=== PATIENT | female | born 1985 | race Caucasian/White ===

== ENCOUNTER → 2016-05-03 | Outpatient (CLI) | payer OTHER ==
[~2016-05-03] MED LIST: BUSP7.5T4 PO; HYDR-3730 PO
--- OUTSIDE RECORDS SUMMARY | 2016-05-03 08:29 | XMS REPORT | Continuity of Care Document ---
Author Author [facility] Organization [facility] Address Unknown Phone Unavailable Care Team Providers Care Dishtank Operator Name Role Phone SOM CARRILLO DO PCP Insurance Providers Payer Name Policy Number Subscriber Name Relationship [facility] [id number] [place] 18 Self / Same As Patient Advance Directives Directive Response Recorded Date/Time Advance Directives No 07/14/14 8:43am Health Care Power of Engineer And Geologist No 07/14/14 8:43am Organ Donor No 07/14/14 8:43am Resuscitation Status Full Code 07/14/14 8:43am Problems No known problems or medical conditions. Medications Medication Dose Route Sig Days/Qty Instructions Order Date Discontinued Date Status Buspirone Hcl 7.5 Mg PO TWICE A DAY 07/11/14 Active Hydrocodone/Acetaminophen 1-2 Each PO EVERY 6 HOURS 35 Qty 07/14/14 Active Social History Social History Problem Response Recorded Date/Time Alcohol Use Denies Use 07/14/2014 8:43am Recreational Drug Use No 07/14/2014 8:43am Recent Foreign Travel No 07/14/2014 8:43am Sexually Transmitted Disease No 07/14/2014 8:43am HIV/AIDS No 07/14/2014 8:43am Smoking Status Never a Smoker 07/14/2014 8:45am Query Response Start Date Stop Date Smoking Status Never a Smoker Hospital Discharge Instructions No hospital discharge instructions. Plan of Care No plan of care. Functional Status No functional status results. Allergies, Adverse Reactions, Alerts Allergen Type Severity Reaction Status Last Updated antihistamines Allergy Unknown throat swelling Active 07/11/14 Immunizations No immunization records. Vital Signs Acute Vital Signs Vital Response Date/Time Temperature (Fahrenheit) 98.9 degrees F (97.6 - 99.5) Temperature (Calculated Celsius) 37.31765 degrees C (36.4 - 37.5) Temperature Source Temporal Pulse Rate (adult) 68 bpm (60 - 90) Respiratory Rate 16 bpm (12 - 24) O2 Sat by Pulse Oximetry 98 % (88 - 100) Blood Pressure 96/51 mm Hg Pain Pain Intensity 5 Height (Feet) 5 feet Height (Inches) 1.00 inches Height (Calculated Centimeters) 154.704514 cm Weight (Pounds) 122 pounds Weight (Calculated Grams) 75276.270 gm Weight (Calculated Kilograms) 55.742906 kilograms Calculated BMI 20.30 Results Laboratory Results Test Name Result Units Flags Reference Collection Date/Time Result Date/ Time Comments White Blood Count 5.3 10^3/uL 4.3-11.0 07/14/2014 8:07/14/2014 8: 37am Red Blood Count 4.28 10^6/uL L 4.35-5.85 07/14/2014 8:07/14/2014 8: 37am Hemoglobin 13.7 G/DL 11.5-16.0 07/14/2014 8:07/14/2014 8:37am Hematocrit 40 % 35-52 07/14/2014 8:07/14/2014 8:37am Mean Corpuscular Volume 94 FL 80-99 07/14/2014 8:07/14/2014 8: 37am Mean Corpuscular Hemoglobin 32 PG 25-34 07/14/2014 8:07/14/2014 8: 37am Mean Corpuscular Hemoglobin Concent 34 G/DL 32-36 07/14/2014 8:09/2014 8:37am Red Cell Distribution Width 11.7 % 10.0-14.5 07/14/2014 8:2014 8:37am Platelet Count 295 10^3/uL 130-400 07/14/2014 8:07/14/2014 8:37am Mean Platelet Volume 9.6 FL 7.4-10.4 07/14/2014 8:25am 07/14/2014 8: 37am Procedures Procedure Status Date Provider(s) Repair of umbilical hernia in adult completed 07/14/14 ARY HERNANDEZ MD Encounters Encounter Location Date/Time Registered [facility] 07/14/14 7:55am Registered Clinic [facility] 07/11/14 6:05am
--- NOTE | 2016-05-03 13:13 | Diagnostic Imaging Report ---
Scoliosis standing. INDICATION: Thoracic pain. 3 AP standing views of the spine were obtained. There are no prior exams available for comparison. The vertebral body heights and alignment are generally within normal limits. There is perhaps minimal curvature of the upper thoracic spine, convex to left. This could be secondary to position. There is no fracture or acute bony abnormality identified. The heart size is within normal limits. The lungs are clear. There is no abdominal mass or organomegaly identified. There does appear to be an IUD overlying the pelvis. IMPRESSION: 1. There is perhaps minimal levoscoliosis of the upper thoracic spine. There is no acute bony abnormality identified either. 2. If there is clinical concern regarding kyphosis, then a lateral view of the thoracic spine would be recommended. Dictated by: Dictated on workstation # [id number]
== END ==
LOC: RAD 08:26
PROVIDERS: ATTEND Family Medicine
DX: M41.24 Other idiopathic scoliosis, thoracic region (principal)
CPT/HCPCS: 72081

== ENCOUNTER → 2016-07-30 | Outpatient (CLI) | payer OTHER ==
--- NOTE | 2016-07-30 16:33 | Diagnostic Imaging Report ---
EXAMINATION: Two views of the lumbar spine. INDICATION: Left hip pain. FINDINGS: The lumbar spine demonstrates satisfactory alignment. The vertebral body heights are preserved. The disc heights are also preserved. The SI joints appear unremarkable. No significant osteophyte formation. An intrauterine contraceptive device projects over the central aspect of the pelvis. IMPRESSION: No significant abnormality. Dictated by: Dictated on workstation # [id number]
== END ==
LOC: RAD 14:05
PROVIDERS: ATTEND Family Medicine
DX: M53.3 Sacrococcygeal disorders, not elsewhere classified (principal)
CPT/HCPCS: 72100

== ENCOUNTER → 2020-06-27 | Outpatient (CLI) | payer MEDICAID ==
--- NOTE | 2020-06-27 16:36 | Diagnostic Imaging Report ---
INDICATION: dating. FINDINGS: There is a single live IUP of approximately 9 weeks 0 days gestation. The heart rate was recorded at 178 BPM. No marina-gestational sac hemorrhage is detected. The left ovary is unremarkable. The right ovary could not be visualized. No adnexal mass or free fluid is seen. IMPRESSION: Single live IUP of 9 weeks 0 days gestational age. The estimated date of confinement sonographically is 01/30/2021. Dictated by: Dictated on workstation # [id number]
== END ==
LOC: RAD 12:30
PROVIDERS: ATTEND Family Medicine
DX: Z34.91 Encounter for supervision of normal pregnancy, unspecified, first trimester (principal); Z3A.09 9 weeks gestation of pregnancy
CPT/HCPCS: 76801; 76817

== ENCOUNTER → 2020-09-04 | Outpatient (CLI) | payer MEDICAID ==
--- NOTE | 2020-09-04 17:11 | Diagnostic Imaging Report ---
INDICATION: survey. TECHNIQUE: Multiple real-time grayscale images were obtained over the gravid uterus. COMPARISON: None FINDINGS: Single live intrauterine fetus in vertex transverse presentation. Placenta is posterior fundal without evidence of abruption. Amniotic fluid index is normal. heart rate of 152. anatomical survey was normal with structures visualized including kidneys, bladder, stomach, ventricles, brain, four-chamber heart, three-vessel cord, spine and cord insertion. The maternal adnexa are normal. Biometrical measurements are as follows: Biparietal 4.27 cm, age 19 weeks 0 days. Head circumference 15.98 cm, age 18 weeks 6 days. Abdominal circumference 13.44 cm, age 19 weeks 0 days. Femur length 2.77 cm, age 18 weeks 7 days. Sonographic estimate age: 18 weeks 6 days. Sonographic estimated date of delivery: 01/30/21. Estimated Weight: 254 gm (+/- 37 gm). LMP percentile: 72%. heart rate: 152 beats per minute. number: 1 of 1. IMPRESSION: 1. Single live intrauterine fetus in transverse presentation. No abnormalities demonstrated. 2. Biometric measurements are currently average for 18 weeks 6 day gestation. Dictated by: Dictated on workstation # [id number]
== END ==
LOC: RAD 13:00
PROVIDERS: ATTEND Family Medicine
DX: Z34.92 Encounter for supervision of normal pregnancy, unspecified, second trimester (principal); Z3A.18 18 weeks gestation of pregnancy
CPT/HCPCS: 76805

== ENCOUNTER 2020-11-20 09:11 | Emergency (ER) | payer MEDICAID ==
[~2020-11-20] VITALS: Ht 154.9 cm; Wt 65.8 kg
[2020-11-20 09:28] VITALS: BP 112/73
--- NOTE | 2020-11-20 10:05 | ED EENT ---
History of Present Illness General Chief Complaint: Ear Problems Stated Complaint: L EAR BUG FLEW IN IT Nursing Triage Note: PT AMB TO FT 3 W C/O BUG IN LEFT EAR SX 0200. Source: patient (SERGIO STONER) History of Present Illness Date Seen by Provider: Nov 20, 2020 Time Seen by Provider: 09:45 Initial Comments CC: Bug in Ear 34 yo female presents with concern of bug in the left ear. Patient states that this happened last night as they were redoing their laundry room. Patient does feel some slight pressure that she describes as sinus pain, but is not currently having any other symptoms. Patient states she did place vegetable oil in ear as recommend per the online resource that she had read. Timing/Duration: abrupt, other (last night) Location: ear (L) Prearrival Treatment: other (vegetable oil) Associated Symptoms: No change in hearing, No cough, No drooling; facial pain/swelling (Sinus pressure); No fever, No nasal congestion/drainage (SERGIO STONER) Allergies and Home Medications Allergies Uncoded Allergies: antihistamines (Allergy, Unknown, throat swelling, 10/23/15) Patient Home Medication List Home Medication List Reviewed: Yes (SANJAY STEWART) Buspirone Hcl (Buspirone Hcl) 7.5 Mg Tablet, 7.5 MG PO BID, (Reported) Entered as Reported by: VERNELL FELIPE on 07/11/14 1244 Ciprofloxacin HCl/Dexameth (Ciprodex Otic Suspension) 7.5 Ml Soln, 2 DROPS OT BID Prescribed by: SANJAY STEWART on 11/20/20 1131 Hydrocodone/Acetaminophen (Lortab 7.5-325 mg Tablet) 1 Each Tablet, 1-2 EACH PO Q6H Prescribed by: ARY HERNANDEZ on 07/14/14 1049 Review of Systems Review of Systems Constitutional: No chills, No fever Eyes: Denies Pain Ears: Denies Dizziness, Denies Tinnitus, Denies Bloody Discharge, Denies Clear Discharge, Denies Purulent Discharge Respiratory: No cough, No short of breath Cardiovascular: No chest pain, No palpitations (SERGIO STONER) Past Xjxhpbn-Qezepo-Cbpjio Hx Patient Social History Tobacco Use?: No Smoking Status: Never a Smoker Use of E-Cig and/or Vaping dev: No Substance use?: No Alcohol Use?: No (HERBIESERGIO [employer] [facility]) Immunizations Up To Date First/Initial COVID19 Vaccinat: NONE Second COVID19 Vaccination Tony: NONE (HERBIESERGIO [employer] [facility]) Physical Exam Vital Signs Vital Signs - First Documented 11/20/20 09:28 Temp 36.6 Pulse 94 Resp 18 B/P (MAP) 112/73 (86) Pulse Ox 99 O2 Delivery Room Air (SANJAY STEWART) Height, Weight, BMI Height: '" Weight: lbs. oz. kg; 27.00 BMI Method: Eyes: bilateral eye normal inspection, bilateral eye PERRL, bilateral eye EOMI Ears: left ear other (Black obkect noted in the left ear); bilateral ear auricle normal, bilateral ear TM normal Mouth/Throat: normal mouth inspection, pharynx normal Cardiovascular: regular rate, rhythm, no edema, no murmur Respiratory: chest non-tender, lungs clear, normal breath sounds, no respiratory distress, no accessory muscle use Neurologic/Psychiatric: alert, oriented x 3 Skin: normal color, warm/dry (SERGIO STONER [employer] [facility]) General Appearance: WD/WN, mild distress (SANJAY STEWART) Progress/Results/Core Measures Results/Orders Vital Signs/I&O 11/20/20 09:28 Temp 36.6 Pulse 94 Resp 18 B/P (MAP) 112/73 (86) Pulse Ox 99 O2 Delivery Room Air (SANJAY STEWART) Blood Pressure Mean: 86 Progress Progress Note : Time: 11:25 Progress Note I attest that I saw this patient alongside the medical student and agree with his documented history, physical exam and review of systems except as otherwise noted. Patient did have a little tiny black speck of something down in her ear. She left AMA before we can get back in the room to reexamine her. (SANJAY STEWART) Departure Impression Primary Impression: Foreign body of ear, left Qualified Codes: T16.2XXA - Foreign body in left ear, initial encounter Disposition: 01 HOME, SELF-CARE Condition: Stable Departure-Patient Inst. Decision time for Depature: 11:28 (SANJAY STEWART) Referrals: ALEXA SETH MD (PCP/Family) Primary Care Physician Patient Instructions: Foreign Body in Ear, Child (DC) Add. Discharge Instructions: make up editor some swimmers ear or you can make your own by mixing equal parts rubbing alcohol, acetic acid, hydrogen peroxide, distilled water in place 6 drops in the affected ear 4 times a day for the next week Alternatively you may use the antibiotic eardrops 2 drops twice a day for the next week All discharge instructions reviewed with patient and/or family. Voiced understanding. Scripts Ciprofloxacin HCl/Dexameth (Ciprodex Otic Suspension) 7.5 Ml Soln 2 DROPS OT BID for 7 Days, #7.5 ML 0 Refills Prov: SANJAY STEWART 11/20/20 SERGIO STONER [facility] Nov 20, 2020 10:05 SANJAY STEWART Nov 20, 2020 11:31
[2020-11-20] MEDS ORDERED: NF-CIPDEC OT (11:31)
== END 2020-11-20 11:23 | disposition left against medical advice (07) ==
LOC: EDUNIT# 09:11 → ER 09:13
DX: T16.2XXA Foreign body in left ear, initial encounter (principal)
CPT/HCPCS: 99281

== ENCOUNTER 2021-01-15 02:48 | Inpatient (IN) | payer MEDICAID ==
[~2021-01-15] VITALS: Ht 154.9 cm; Wt 69.6 kg
[2021-01-15] VITALS (38 sets, daily range): BP systolic 84–124; BP diastolic 49–75
[~2021-01-15 02:48] MED LIST changes: +NF-CIPDEC OT
[2021-01-15] MEDS ORDERED: FERR-84 PO (03:01)
[2021-01-15] MEDS ORDERED: PREN-8 PO (03:01)
[2021-01-15] MEDS ORDERED: D5 LR IV SOLUTION 1,000 ML IV ONE (03:25)
[2021-01-15] MEDS ORDERED: BUTORPHANOL INJ 2 MG/ML (STADOL) VIAL IV PRN (04:00)
[2021-01-15] MEDS ORDERED: D5 LR IV SOLUTION 1,000 ML IV SCH (04:00)
[2021-01-15 04:04] LABS: BASOPHILS % (AUTO) 0 % (0-10); EOSINOPHILS # (AUTO) 0.1 10^3/uL (0.0-0.3); EOSINOPHILS % (AUTO) 1 % (0-10); HEMATOCRIT 38 % (35-52); HEMOGLOBIN 12.9 g/dL (11.5-16.0); LYMPHOCYTES # (AUTO) 1.7 10^3/uL (1.0-4.0); LYMPHOCYTES % (AUTO) 16 % (12-44); MEAN CORPUSCULAR HEMOGLOBIN 32 pg (25-34); MEAN CORPUSCULAR HGB CONC 34 g/dL (32-36); MEAN CORPUSCULAR VOLUME 96 fL (80-99); MONOCYTES # (AUTO) 0.6 10^3/uL (0.0-1.0); MONOCYTES % (AUTO) 6 % (0-12); NEUTROPHILS # (AUTO) 7.8 10^3/uL (1.8-7.8); NEUTROPHILS % (AUTO) 75 % (42-75); PLATELET COUNT 278 10^3/uL (130-400); WHITE BLOOD COUNT 10.4 10^3/uL (4.3-11.0)
[2021-01-15] MEDS ORDERED: BUTORPHANOL INJ 2 MG/ML (STADOL) VIAL ONE (04:13)
[2021-01-15] MEDS ORDERED: CATHETER FLUSH 10 ML SYR IV SCH ×2 (06:00→14:00)
--- NOTE | 2021-01-15 06:36 | History & Physical-OB ---
OB - Chief Complaint & HPI Date/Time Date of Admission: Date of Admission: Jan 15, 2021 at 03:22 Date seen by a Provider: Jan 15, 2021 Time Seen by a Provider: 06:30 Chief Complaint/History OB-Reason for Admission/Chief: Onset of Labor Hx : 2 Hx Para: 1 Expected Date of Delivery: Jan 30, 2021 Gestational Age in Weeks: 37 Gestational Age in Days: 6 Admission Nurse Assessment Rev: Yes History of Labs Group B streptococcus negative perineal check at 36 weeks Allergies and Home Medications Allergies Uncoded Allergies: antihistamines (Allergy, Unknown, throat swelling, 10/23/15) Patient Home Medication List Home Medication List Reviewed: Yes Ferrous Sulfate (Iron) 325 Mg Tablet, 325 MG PO DAILY, (Reported) Entered as Reported by: SAÚL GONZALEZ on 01/15/21300 Last Action: New Order Vit W-Ca,Fe,FA(<1 mg) ( Formula) 1 Each Tablet, 1 EACH PO DAILY, (Reported) Entered as Reported by: SAÚL GONZALEZ on 01/15/21300 Last Action: New Order Discontinued Medications Buspirone Hcl (Buspirone Hcl) 7.5 Mg Tablet, 7.5 MG PO BID, (Reported) Discontinued Reason: No Longer Taking Entered as Reported by: VERNELL FELIPE on 07/11/14 1244 Last Action: Discontinued Ciprofloxacin HCl/Dexameth (Ciprodex Otic Suspension) 7.5 Ml Soln, 2 DROPS OT BID Discontinued Reason: No Longer Taking Prescribed by: SANJAY STEWART on 11/20/20 1131 Last Action: Discontinued Hydrocodone/Acetaminophen (Lortab 7.5-325 mg Tablet) 1 Each Tablet, 1-2 EACH PO Q6H Discontinued Reason: No Longer Taking Prescribed by: ARY HERNANDEZ on 07/14/14 1049 Last Action: Discontinued OB - History Hx of Present Care: Yes Ultrasounds: Normal mid trimester US Obstetrical Complications: None Medical Complications: None Obstetrical History Hx : 2 Hx Para: 1 Patient Past Medical History No chronic medical problems Social History/Family History Alcohol Use: Denies Use Recreational Drug Use: No 2nd Hand Smoke Exposure: No Immunizations Hepatitis A: Yes Hepatitis B: Yes OB - Admission Exam Physical Exam Vitals: Vital Signs 01/15/21 01/15/21 03:59 04:20 Temp 36.8 Pulse 75 Resp 16 B/P (MAP) 117/58 (77) Pulse Ox 98 O2 Delivery Room Air HEENT: Moist Membranes Heart: Rhythm Normal Lungs: Clear Abdomen: Gravid Cervical Dilatation: 5cm Effacement: 100% Station: -3 Membranes: Intact Heart Rate: 130's Accelerations: Accelerations Present Short Term Variability: Present Outside B2B Sales Variability: Average (6-25) Contractions on Admission: < 5 Minutes Apart Intensity: Moderate Labs Laboratory Tests Test 01/15/21 03:40 Range/Units White Blood Count 10.4 4.3-11.0 10^3/uL Red Blood Count 4.00 3.80-5.11 10^6/uL Hemoglobin 12.9 11.5-16.0 g/dL Hematocrit 38 35-52 % Mean Corpuscular Volume 96 80-99 fL Mean Corpuscular Hemoglobin 32 25-34 pg Mean Corpuscular Hemoglobin Concent 34 32-36 g/dL Red Cell Distribution Width 12.7 10.0-14.5 % Platelet Count 278 130-400 10^3/uL Mean Platelet Volume 10.0 9.0-12.2 fL Immature Granulocyte % (Auto) 1 % Neutrophils (%) (Auto) 75 42-75 % Lymphocytes (%) (Auto) 16 12-44 % Monocytes (%) (Auto) 6 0-12 % Eosinophils (%) (Auto) 1 0-10 % Basophils (%) (Auto) 0 0-10 % Neutrophils # (Auto) 7.8 1.8-7.8 10^3/uL Lymphocytes # (Auto) 1.7 1.0-4.0 10^3/uL Monocytes # (Auto) 0.6 0.0-1.0 10^3/uL Eosinophils # (Auto) 0.1 0.0-0.3 10^3/uL Basophils # (Auto) 0.0 0.0-0.1 10^3/uL Immature Granulocyte # (Auto) 0.1 0.0-0.1 10^3/uL OB - Assessment/Plan/Diagnosis Assessment Assessment: active labor (At 37 weeks 6 days gestation) Admission Dx 1. Intrauterine at term 37 weeks 6 days gestation Admission Status: Inpatient Order (span 2 midnights) Reason for Inpatient Admission: Labor and delivery Plan Plan: Expectant Management Other Plan -Patient desires epidural -Pitocin if needed ALEXA SETH MD Jan 15, 2021 06:36
[2021-01-15] MEDS ORDERED: OXYTOCIN PRE-MIX DRIP 500 ML IV SCH ×2 (06:45→10:45)
[2021-01-15] MEDS ORDERED: FLU QUADRIvalent (3YOA+) 60 mcg/0.5 ml 2021-22(AFLURIA) IM ONE (07:00)
[2021-01-15] MEDS ORDERED: fentaNYL INJ 100 MCG/2 ML AMP ONE (07:06)
[2021-01-15] MEDS ORDERED: BUPIVACAINE 0.25% 30 ML (SENSORCAINE) VIAL ONE (07:06)
[2021-01-15] MEDS ORDERED: NALOXONE 0.4 MG/ML 1 ML (NARCAN) VIAL IV PRN ×2 (07:15→10:45)
[2021-01-15] MEDS ORDERED: EPIDURAL (fentaNYL 2 MCG/ML BUPIVA 0.125%)100 ML BAG EPI PRN (07:15)
[2021-01-15] MEDS ORDERED: fentaNYL 2 mcg/ml BUPIVA 0.125 100 ML EPI PRN (07:15)
[2021-01-15] MEDS ORDERED: fentaNYL INJ 100 MCG/2 ML AMP INJ ONE (07:15)
[2021-01-15] MEDS ORDERED: ONDANSETRON 4 MG/2 ML (SDV) Z0FRAN IV PRN (07:15)
[2021-01-15] MEDS ORDERED: LACTATED RINGERS 1,000 ML IV ONE ×2 (07:15)
[2021-01-15] MEDS ORDERED: MEPIVACAINE (CARBOCAINE) 2% 50 ML VIAL ONE (08:25)
[2021-01-15] MEDS ORDERED: BENZOCAINE/MENTHOL (DERMOPLAST) 56 ML CAN TP PRN (10:45)
[2021-01-15] MEDS ORDERED: MEASLES,MUMPS,RUBELLA 1 EA INJ SQ ONE (10:45)
[2021-01-15] MEDS ORDERED: TETANUS,DIPTH,PERTUSS P/F (BOOSTRIX) 0.5 ML VIAL IM ONE (10:45)
--- NOTE | 2021-01-15 10:47 | OB Labor & Delivery Record ---
L&D History Date of Service Date of Service: Jan 15, 2021 History Expected Date of Delivery: Jan 30, 2021 Gestational Age in Weeks: 37 Hx : 2 Hx Para: 2 Complications Events: Routine care Operative Indications (Cesarea: N/A-Vaginal Delivery Intrapartal Events: None L&D Stage1 Stage One Onset of Labor - Date: Jan 15, 2021 Onset of Labor - Time: 06:25 Monitors and Tracing Monitor Mode: Internal Heart Rate: 125 Monitor Accelerations: Uniform Monitor Decelerations: None Station: -2 Skilled Nursing Variability: Average (6-10) Short Term Variability: Present Presentation: Vertex Vital Signs VS - Last 72 Hours, by Label 01/15/21 01/15/21 01/15/21 02:53 03:59 04:20 Temp 36.8 36.8 36.8 Pulse 73 79 75 Resp 18 18 16 B/P (MAP) 117/58 (77) Pulse Ox 98 98 O2 Delivery Room Air Room Air Room Air Signs of Distress by FHT Signs of Distress no Rupture of Membranes Spontaneous Ruture of Membrane: No Amniotic Membrane Rupture Time: 0625 Amniotic Membrane Fluid Desc.: Clear Vaginal Bleeding Description: None Induction/Anesthesia Epidural Cath Placement - Time: 0720 L&D Stage2 Stage Two Stage II Date: Jan 15, 2021 Stage II Time: 09:29 Monitors and Tracing Monitor Mode: Internal Heart Rate: 125 Monitor Accelerations: Uniform Monitor Decelerations: None Skilled Nursing Variability: Average (6-10) Short Term Variability: Present Position: Right Occiput Posterior Presentation: Vertex Signs of Distress by FHT Signs of Distress no Cord Descript/Complications Cord Vessel Description: 3 Vessels Delivery Type Infant Delivery Method: Spontaneous Vaginal Anterior Shoulder: Left Episiotomy/Perineal Laceration Laceraction(s)/Extensions: Yes Episiotomy Description: Midline Sutures Used: Vicryl Degree (describe repair) No extensions Condition of Infant Delivery 1 minute Comment: 8 5 minute Comment: 9 Condition of Condition of : Living Exam: No Observed Abnormalities Resuscitation Resuscitation: N/A - Spontaneous Resp L&D Stage3 Stage Three Stage III Date: Jan 15, 2021 Stage III Time: 09:37 Pictocin Pitocin ml/hr: 125 Placenta Delivery Placenta Delivery: Spontaneous Delivery Summary Summary Estimated blood loss (mL): 250 Condition of Delivery Examined: Cervix Examined Post Hemorrhage: No Intervention Required none ALEXA SETH MD Jan 15, 2021 10:47
[2021-01-15] MEDS: WITCH HAZEL(TUCKS) 40 EA JAR TOP PRN (12:11)
[2021-01-15] MEDS: ACETAMINOPHEN 500 MG TAB (TYLENOL) PO SCH ×3 (12:11→23:49)
[2021-01-15] MEDS: IBUPROFEN 600 MG (MOTRIN) TAB PO SCH ×3 (12:11→23:46)
[2021-01-15] MEDS ORDERED: DOCUSATE SODIUM 100 MG (COLACE) CAP PO SCH (21:00)
[2021-01-16 04:04] VITALS: BP 111/63
[2021-01-16] MEDS: IBUPROFEN 600 MG (MOTRIN) TAB PO SCH (06:10)
[2021-01-16] MEDS: ACETAMINOPHEN 500 MG TAB (TYLENOL) PO SCH (06:10)
[2021-01-16 06:43] LABS: BASOPHILS % (AUTO) 0 % (0-10); EOSINOPHILS # (AUTO) 0.2 10^3/uL (0.0-0.3); EOSINOPHILS % (AUTO) 2 % (0-10); HEMATOCRIT 33 % (35-52); HEMOGLOBIN 10.8 g/dL (11.5-16.0); LYMPHOCYTES # (AUTO) 1.6 10^3/uL (1.0-4.0); LYMPHOCYTES % (AUTO) 16 % (12-44); MEAN CORPUSCULAR HEMOGLOBIN 33 pg (25-34); MEAN CORPUSCULAR HGB CONC 33 g/dL (32-36); MEAN CORPUSCULAR VOLUME 99 fL (80-99); MEAN PLATELET VOLUME 10.3 fL (9.0-12.2); MONOCYTES # (AUTO) 0.5 10^3/uL (0.0-1.0); MONOCYTES % (AUTO) 5 % (0-12); NEUTROPHILS # (AUTO) 7.5 10^3/uL (1.8-7.8); NEUTROPHILS % (AUTO) 76 % (42-75); PLATELET COUNT 234 10^3/uL (130-400); WHITE BLOOD COUNT 9.9 10^3/uL (4.3-11.0)
[2021-01-16] MEDS ORDERED: PRENATAL VITAMIN 1 EA TAB PO SCH (07:00)
--- NOTE | 2021-01-16 07:16 | Discharge Summary ---
Diagnosis/Chief Complaint Date of Admission Jan 15, 2021 at 03:22 Date of Discharge Discharge Date: Jan 16, 2021 Discharge Time: 10:00 Admission Diagnosis Admission Diagnosis 1. Intrauterine at 37 weeks 6 days gestation Discharge Diagnosis 1. Intrauterine at 37 weeks 6 days gestation Reason Hospital Visit 35-year-old 2 now term 2 who initially presented to women's servicesin the morning of January 15, 2021 with active labor. Patient was noted to have a due date of January 30, 2021. She was dilated to 4 cm upon presentation with bulging membranes. Her GBS status at 36 weeks was noted to be negative. Discharge Summary-OBS Procedures 1. Epidural per anesthesia 2. Spontaneous vaginal delivery 3. Repair of midline episiotomy Discharge Physical Examination Allergies: Uncoded Allergies: antihistamines (Allergy, Unknown, throat swelling, 10/23/15) Vitals & I&Os Vital Signs Date Time Temp Pulse Resp B/P (MAP) Pulse Ox O2 Delivery O2 Flow Rate FiO2 01/16/21 04:04 36.3 67 18 111/63 (79) 98 01/15/21 09:41 Room Air General Appearance: No Acute Distress Respiratory: Clear to Auscultation Cardiovascular: Regular Rate Abdominal: Normal Bowel Sounds, Soft (with uterus firm) Skin: No Rashes Hospital Course Was the Problem List Reviewed?: Yes patient was admitted in the morning of January 15, 2021 and active labor. She underwent routine women's services orders for labor. She did request epidural and had excellent pain relief. Ultimately she went on to completion when she was allowed to push. She delivered over a midline episiotomy which was done at her request as part of her birthing plan. She delivered a term viable female with Apgars of 8 at 1 minute and 9 at 5 minutes. See labor and delivery note for full details. Following delivery she underwent routine care orders. There was no complications during the remainder of hospital stay. She tolerated regular diet. She was ambulatory and did not have any chest pain, shortness of breath or leg pain. She was ready for dismissal in the morning of January 16, 2021. Her hemoglobin on dismissal day was 10.8 compared to 12.9 on admission. Pending Labs Laboratory Tests 01/16/21 05:51: White Blood Count 9.9, Red Blood Count 3.32, Hemoglobin 10.8, Hematocrit 33, Mean Corpuscular Volume 99, Mean Corpuscular Hemoglobin 33, Mean Corpuscular Hemoglobin Concent 33, Red Cell Distribution Width 12.9, Platelet Count 234, Mean Platelet Volume 10.3, Immature Granulocyte % (Auto) 1, Neutrophils (%) (Auto) 76, Lymphocytes (%) (Auto) 16, Monocytes (%) (Auto) 5, Eosinophils (%) (Auto) 2, Basophils (%) (Auto) 0, Neutrophils # (Auto) 7.5, Lymphocytes # (Auto) 1.6, Monocytes # (Auto) 0.5, Eosinophils # (Auto) 0.2, Basophils # (Auto) 0.0, Immature Granulocyte # (Auto) 0.1 Discharge Instructions to patient/family Please see electronic discharge instructions given to patient. Discharge Medications Reviewed and agree with Discharge Medication list on patient's Discharge Instruction sheet ALEXA SETH MD Jan 16, 2021 07:16
--- NOTE | 2021-01-16 07:22 | Discharge Inst-Women's Service ---
Discharge Inst-Women's Serv Depart Medication/Instructions New, Converted or Re-Newed RX: Other Instructions May take piye-hnt-okqxcle ibuprofen 200 mg tablets and take 3 as needed for cramping or pain. Problems Reviewed?: Yes Consults/Follow Up Additional Follow Up: Yes (with Dr. Seth in 6 weeks) Activity Activity: Activity as Tolerated Driving Instructions: No Driving for 1 Week Nothing Inside Vagina: No [place] (for 6 weeks) Diet Discharge Diet: Regular Diet Return to The Hospital For: as below Symptoms to Report to : Swelling Increased, Bleeding Excessive, Fever Over 101 Degrees F, Vaginal Discharge Foul For Any Problems or Questions: Contact Your Physician ALEXA SETH MD Jan 16, 2021 07:22
[2021-01-16 08:23] VITALS: BP 111/64
[2021-01-16] MEDS: WITCH HAZEL(TUCKS) 40 EA JAR TOP PRN (09:51)
== END 2021-01-16 12:57 | disposition home or self-care (01) | DRG 807 ==
LOC: WSo 02:48 → LDRP 02:51 → WSo 03:22 → LDRP 03:22
PROVIDERS: ADMIT Family Medicine; ATTEND Family Medicine
PROC: 10E0XZZ Delivery of Products of Conception, External Approach (ICD-10-PCS; principal; 2021-01-15)
PROC: 0W8NXZZ Division of Female Perineum, External Approach (ICD-10-PCS; 2021-01-15)
DX: O80 Encounter for full-term uncomplicated delivery (principal); Z37.0 Single live birth; Z3A.37 37 weeks gestation of pregnancy
CPT/HCPCS: 36415; 85025; 86780; 86850; 86900; 86901

== ENCOUNTER → 2021-10-15 | Outpatient (CLI) | payer MEDICAID ==
[~2021-10-15] MED LIST changes: +FERR-84 PO; +PREN-8 PO
--- NOTE | 2021-10-15 14:19 | Diagnostic Imaging Report ---
INDICATION: survey. TECHNIQUE: Multiple Real-time grayscale images were obtained over the gravid uterus. COMPARISON: None FINDINGS: There is a single live fetus in breech presentation. The heart rate was recorded at 163 BPM. The placenta is posterior. There appears to be a complete placenta previa at this time. The amniotic fluid volume is normal. The kidneys, bladder, and stomach are unremarkable. The brain is unremarkable. There is a four-chamber heart. There is a three-vessel cord with normal insertion. The spine is unremarkable. Biometrical measurements are as follows: Biparietal 4.31 cm, age 19 weeks 1 days. Head circumference 16 cm, age 18 weeks 6 days. Abdominal circumference 14.53 cm, age 19 weeks 6 days. Femur length 2.83 cm, age 18 weeks 5 days. Sonographic estimate age: 19 weeks 1 days. Sonographic estimated date of delivery: 03/10/2022. Estimated Weight: 282 gm (+/- 41 gm). LMP percentile: NA%. heart rate: 163 beats per minute. number: 1 of 1. IMPRESSION: Single live IUP at 19 weeks 1 day gestational age. The estimated date of confinement sonographically is 03/10/2022. Note is made of a complete placenta previa. Followup is recommended in the later 2nd or early 3rd trimester. Dictated by: Dictated on workstation # [id number]
== END ==
LOC: RAD 12:00
PROVIDERS: ATTEND Family Medicine
DX: Z34.92 Encounter for supervision of normal pregnancy, unspecified, second trimester (principal); Z3A.19 19 weeks gestation of pregnancy
CPT/HCPCS: 76805

== ENCOUNTER → 2021-12-24 | Outpatient (CLI) | payer MEDICAID ==
--- NOTE | 2021-12-24 14:59 | Diagnostic Imaging Report ---
INDICATION: Placenta previa. FINDINGS: There is a single live fetus in cephalic presentation. The heart rate was recorded at 153 BPM. The placenta is posterior. No previa is identified on today's study. The placental tip to the internal cervical os is 3.6 cm. The amniotic fluid index is 26.5 cm. IMPRESSION: 1. No evidence of placenta previa. 2. The amniotic fluid index is slightly elevated at 26.5 cm. Dictated by: Dictated on workstation # [id number]
== END ==
LOC: RAD 09:55
PROVIDERS: ATTEND Family Medicine
DX: O44.10 Complete placenta previa with hemorrhage, unspecified trimester (principal); Z3A.00 Weeks of gestation of pregnancy not specified
CPT/HCPCS: 76817

== ENCOUNTER 2022-02-15 09:31 | Outpatient (CLI) | payer MEDICAID ==
[~2022-02-15] VITALS: Ht 155 cm; Wt 71.5 kg
[2022-02-15 09:30] VITALS: BP 112/79
--- NOTE | 2022-02-18 08:41 | Physician Query-Final Dx ---
KYLIE02/18/22 0841: Clinic Account Progress/Dx Physician Query: Please give diagnosis Please include # weeks gestation Date of Service Feb 15, 2022 at 09:31 ALEXA SETH MD 02/18/22 1929: Clinic Account Progress/Dx DIAGNOSIS: Diagnosis 1. IUP at 36 weeks 2. Uterine irritability, non labor KYLIE,MarFeb 18, 2022 08:41 ALEXA SETH MD Feb 18, 2022 19:29
== END 2022-02-15 10:15 ==
LOC: WSo 09:31 → LDRP 09:31 → WSo 10:15
PROVIDERS: ATTEND Family Medicine
DX: O36.8130 Decreased fetal movements, third trimester, not applicable or unspecified (principal); Z3A.36 36 weeks gestation of pregnancy

== ENCOUNTER 2022-02-28 07:37 | Inpatient (IN) | payer MEDICAID ==
[~2022-02-28] VITALS: Ht 154.9 cm; Wt 73.3 kg
[2022-02-28] VITALS (27 sets, daily range): BP systolic 92–141; BP diastolic 51–88
[2022-02-28] MEDS ORDERED: D5 LR IV SOLUTION 1,000 ML IV SCH (08:00)
[2022-02-28] MEDS: LACTATED RINGERS 1,000 ML IV SCH ×2 (08:02→08:30)
[2022-02-28 08:08] LABS: BASOPHILS % (AUTO) 0 % (0-10); EOSINOPHILS # (AUTO) 0.1 10^3/uL (0.0-0.3); EOSINOPHILS % (AUTO) 0 % (0-10); HEMATOCRIT 37 % (35-52); HEMOGLOBIN 12.3 g/dL (11.5-16.0); LYMPHOCYTES # (AUTO) 2.3 10^3/uL (1.0-4.0); LYMPHOCYTES % (AUTO) 14 % (12-44); MEAN CORPUSCULAR HEMOGLOBIN 31 pg (25-34); MEAN CORPUSCULAR HGB CONC 33 g/dL (32-36); MEAN CORPUSCULAR VOLUME 94 fL (80-99); MONOCYTES # (AUTO) 0.9 10^3/uL (0.0-1.0); MONOCYTES % (AUTO) 6 % (0-12); NEUTROPHILS # (AUTO) 12.5 10^3/uL (1.8-7.8); NEUTROPHILS % (AUTO) 79 % (42-75); PLATELET COUNT 319 10^3/uL (130-400); WHITE BLOOD COUNT 15.9 10^3/uL (4.3-11.0)
[2022-02-28] MEDS ORDERED: LACTATED RINGERS 1,000 ML IV ONE (08:13)
[2022-02-28] MEDS ORDERED: fentaNYL 2 mcg/ml BUPIVA 0.125 100 ML ONE (08:13)
[2022-02-28] MEDS ORDERED: fentaNYL INJ 100 MCG/2 ML AMP ONE ×2 (08:25→10:03)
[2022-02-28] MEDS ORDERED: BUPIVACAINE 0.25% 30 ML (SENSORCAINE) VIAL ONE (08:25)
[2022-02-28 08:33] LABS: LYMPHOCYTES % (MANUAL) 9 %; MONOCYTES % (MANUAL) 4 %; NEUTROPHILS % (MANUAL) 84 %; RBC MORPH NORMAL; REACTIVE LYMPHOCYTES 3 %
--- NOTE | 2022-02-28 08:33 | History & Physical-OB ---
OB - Chief Complaint & HPI Date/Time Date of Admission: Date of Admission: Feb 28, 2022 at 07:52 Date seen by a Provider: Feb 28, 2022 Time Seen by a Provider: 08:15 Chief Complaint/History OB-Reason for Admission/Chief: Onset of Labor Hx : 3 Hx Para: 2 Gestational Age in Weeks: 38 Admission Nurse Assessment Rev: Yes History of Labs GBS negative Allergies and Home Medications Allergies Uncoded Allergies: antihistamines (Allergy, Unknown, throat swelling, 10/23/15) Patient Home Medication List Home Medication List Reviewed: Yes Ferrous Sulfate (Iron) 325 Mg Tablet, 325 MG PO DAILY, (Reported) Entered as Reported by: SAÚL GONZALEZ on 01/15/21300 Vit W-Ca,Fe,FA(<1 mg) ( Formula) 1 Each Tablet, 1 EACH PO DAILY, (Reported) Entered as Reported by: SAÚL GONZALEZ on 01/15/21300 OB - History Hx of Present Care: Yes Ultrasounds: Normal mid trimester US Obstetrical Complications: None Medical Complications: None Patient Past Medical History No chronic medical problems Social History/Family History 2nd Hand Smoke Exposure: No Immunizations First/Initial COVID19 Vaccine: NONE Second COVID19 Vaccination: NONE Hepatitis A: Yes Hepatitis B: Yes OB - Admission Exam Physical Exam HEENT: Moist Membranes Heart: Rhythm Normal Abdomen: Gravid Cervical Dilatation: 7cm Effacement: 100% Station: -3 Membranes: Intact Heart Rate: 140's Accelerations: Accelerations Present Labs Laboratory Tests Test 02/28/22 08:00 Range/Units White Blood Count 15.9 H 4.3-11.0 10^3/uL Red Blood Count 3.95 3.80-5.11 10^6/uL Hemoglobin 12.3 11.5-16.0 g/dL Hematocrit 37 35-52 % Mean Corpuscular Volume 94 80-99 fL Mean Corpuscular Hemoglobin 31 25-34 pg Mean Corpuscular Hemoglobin Concent 33 32-36 g/dL Red Cell Distribution Width 13.2 10.0-14.5 % Platelet Count 319 130-400 10^3/uL Mean Platelet Volume 10.0 9.0-12.2 fL Immature Granulocyte % (Auto) 1 % Neutrophils (%) (Auto) 79 H 42-75 % Lymphocytes (%) (Auto) 14 12-44 % Monocytes (%) (Auto) 6 0-12 % Eosinophils (%) (Auto) 0 0-10 % Basophils (%) (Auto) 0 0-10 % Neutrophils # (Auto) 12.5 H 1.8-7.8 10^3/uL Lymphocytes # (Auto) 2.3 1.0-4.0 10^3/uL Monocytes # (Auto) 0.9 0.0-1.0 10^3/uL Eosinophils # (Auto) 0.1 0.0-0.3 10^3/uL Basophils # (Auto) 0.0 0.0-0.1 10^3/uL Immature Granulocyte # (Auto) 0.1 0.0-0.1 10^3/uL OB - Assessment/Plan/Diagnosis Assessment Assessment: active labor Admission Dx 1. IUP at term 38 weeks gestation in labor Admission Status: Inpatient Order (span 2 midnights) Reason for Inpatient Admission: L&D Plan Plan: Expectant Management Induction Method: AROM Other Plan -Patient desires epidural ALEXA SETH MD Feb 28, 2022 08:33
[2022-02-28] MEDS ORDERED: NALOXONE 0.4 MG/ML 1 ML (NARCAN) VIAL IV PRN ×2 (09:00→12:15)
[2022-02-28] MEDS ORDERED: diphenhydrAMINE 50 MG/ML INJ (BENADRYL) IV PRN (09:00)
[2022-02-28] MEDS ORDERED: fentaNYL 2 mcg/ml BUPIVA 0.125 100 ML EPI SCH (09:00)
[2022-02-28] MEDS ORDERED: ONDANSETRON 4 MG/2 ML (SDV) Z0FRAN IV PRN (09:00)
[2022-02-28] MEDS ORDERED: METHYLERGONOVINE 0.2 MG/ML (METHERGINE) AMP ONE (09:43)
[2022-02-28] MEDS ORDERED: OXYTOCIN PRE-MIX DRIP 500 ML IV ONE (09:43)
[2022-02-28] MEDS ORDERED: ceFAZolin INJECTION 2,000 MG ONE (09:57)
[2022-02-28] MEDS ORDERED: SUCCINYLCHOLINE INJ 20 MG/1 ML 10 ML VIAL ONE (10:03)
[2022-02-28] MEDS ORDERED: LIDOCAINE PF 2% 5 ML (XYLOCAINE) VIAL ONE (10:03)
[2022-02-28] MEDS ORDERED: proPOfol 200 MG/20 ML (DIPRIVAN) VIAL IV ONE (10:03)
--- NOTE | 2022-02-28 10:25 | Diagnostic Imaging Report ---
Indication: Status post . Study performed for instrument count. Time of Exam: 10:13 AM Portable view of the lower abdomen and pelvis was obtained. No unexpected radiopaque foreign objects are identified. Prominent soft tissue lower abdomen likely represents post-gravid uterus. Impression: No unexpected radiopaque foreign object identified. Dictated by: Dictated on workstation # [id number]
[2022-02-28] MEDS ORDERED: SEVOFLURANE (ULTANE) 15 ML INHAL SOLN ONE (10:40)
[2022-02-28] MEDS ORDERED: MEPERIDINE (DEMEROL) INJ 50 MG/ML ONE (11:08)
[2022-02-28] MEDS ORDERED: morphine INJ 10 MG/ML 1ML (SYR OR VIAL) ONE (11:11)
[2022-02-28] MEDS ORDERED: morphine INJ 10 MG/ML 1ML (SYR OR VIAL) IVP ONE ×2 (11:15)
[2022-02-28] MEDS ORDERED: MEPERIDINE (DEMEROL) INJ 50 MG/ML IVP ONE (11:15)
[2022-02-28] MEDS ORDERED: HYDROmorphone 2 MG/ML VIAL (DILAUDID) IV ONE (11:15)
[2022-02-28] MEDS ORDERED: ONDANSETRON 4 MG/2 ML (SDV) Z0FRAN IVP PRN ×3 (11:15→12:15)
[2022-02-28] MEDS ORDERED: fentaNYL INJ 100 MCG/2 ML AMP IVP ONE (11:15)
[2022-02-28] MEDS ORDERED: OXYTOCIN PRE-MIX DRIP 500 ML IV SCH (12:15)
[2022-02-28] MEDS ORDERED: TETANUS,DIPTH,PERTUSS P/F (BOOSTRIX) 0.5 ML VIAL IM SCH (12:15)
[2022-02-28] MEDS ORDERED: MEASLES,MUMPS,RUBELLA 1 EA INJ SC SCH (12:15)
[2022-02-28] MEDS: HYDROcodone/APAP 5 MG/325 MG (LORTAB) TAB PO PRN ×3 (12:17→22:41)
[2022-02-28] MEDS: KETOROLAC 30 MG/ML VIAL IV SCH ×2 (12:17→18:35)
[2022-02-28] MEDS ORDERED: CATHETER FLUSH 10 ML SYR IV SCH (14:00)
--- NOTE | 2022-02-28 16:31 | OPERATIVE REPORT ---
PREOPERATIVE DIAGNOSES: 1. A 36-year-old female at 37 weeks and 6 days gestation. 2. Malpresentation and acute distress. POSTOPERATIVE DIAGNOSES: 1. A 36-year-old female at 37 weeks and 6 days gestation. 2. Malpresentation and acute distress. PROCEDURE: Emergency . SURGEON: Dio Hoffman DO PLANT PULLER: Dr. Herber Lock, who was necessary for manipulation and retraction throughout the procedure. ANESTHESIA: General endotracheal. ESTIMATED BLOOD LOSS: 1100 mL FLUID: 2200 mL of lactated Ringer solution. Urine was 50 mL slightly blood-tinged at the end of the procedure. FINDINGS: Live male infant, weight and Apgars pending. SPECIMENS SENT: Placenta. INDICATIONS FOR PROCEDURE: This patient was admitted for active labor by Dr. Lock earlier this morning. I was contacted in emergency setting, requesting my services immediately as the heart rate was in the 50s and there was suspicion for malpresentation. I presented to the hospital as soon as I could. When I arrived, the patient was in the operating room and in the process of being administered a general anesthetic. Once the patient was prepped and draped, general anesthetic was administered and I was given the okay to proceed. OPERATIVE REPORT IN DETAIL: Once given the okay from anesthesia that the airway is secured, I make a Pfannenstiel skin incision with a knife and carried to underlying fascia using the knife. I extended the fascial incision using blunt traction. The rectus muscles are bluntly dissected apart and dissected down the middle using blunt traction. The peritoneum was entered using blunt traction. I then placed an Santiago retractor peritoneal incision was offered excellent retraction. The lower segment was incised with a knife and the is found in the vertex presentation. Its head was elevated up to the incision and was delivered through the incision. There was an oropharynx were bulb suctioned. Anterior and posterior shoulders were delivered. There was brought to the operative field. The cord was doubly clamped and infant was taken off the field by Dr. Lock for further attendance. Cord blood was collected. Three-vessel cord intact placenta was delivered spontaneously thereafter. IV Pitocin was initiated to facilitate uterine contraction. There is still some mild bogginess of the uterus, so 0.2 mg of Methergine IM are administered via anesthesia. Once the uterus was exteriorized and cleared of all endometrial clots and debris, I proceeded with closing the uterine incision using 0 Vicryl suture in a running locked fashion. A second layer of imbricating 0 Monocryl was placed. Excellent hemostasis was noted. After doing this, I then placed the uterus back in the pelvis and copiously irrigated the pelvis and once saline once again and found to be normal female dissection planes. I placed Surgicel in the lateral margins of the uterine incision as the uterine vessels were very close in proximity to the incision. I then covered the remainder of the uterine incision using Interceed. I removed the Santiago ring retractor and then proceeded with closing the peritoneum using 3-0 Vicryl suture in a running fashion. Rectus muscle was reapproximated using 3-0 Vicryl suture in interrupted fashion. The fascia was reapproximated using 0 Vicryl suture in a running fashion. Subcutaneous tissue was reapproximated using 3-0 plain interrupted subcutaneous stitch and skin reapproximated using 4-0 Monocryl running subcuticular. Dermabond was applied to incision and sterile dressings with adhesive tape. The patient tolerated the procedure well and was taken to recovery area in stable condition. Lap and sponge counts were correct at the end of procedure, instrument counts were correct as well. X-ray flat plate is done to confirm no sponge retention. Two grams of Ancef were given intraoperatively for infection prophylaxis. Job ID: [id number] DocumentID: [id number] Dictated Date: 02/28/2022 12:11:15 Manager [employer] Date: 02/28/2022 16:30:00 Dictated By: DIO HOFFMAN DO
[2022-02-28] MEDS: METOCLOPRAMIDE 10 MG (REGLAN) TAB PO SCH (18:35)
[2022-02-28] MEDS: DOCUSATE SODIUM 100 MG (COLACE) CAP PO SCH (20:34)
[2022-03-01 00:40] VITALS: BP 110/74
[2022-03-01] MEDS: METOCLOPRAMIDE 10 MG (REGLAN) TAB PO SCH ×5 (00:40→23:31)
[2022-03-01] MEDS: KETOROLAC 30 MG/ML VIAL IV SCH ×3 (00:40→13:08)
[2022-03-01 04:44] VITALS: BP 104/59
[2022-03-01] MEDS: HYDROcodone/APAP 5 MG/325 MG (LORTAB) TAB PO PRN ×4 (04:44→23:31)
[2022-03-01 06:12] LABS: BASOPHILS % (AUTO) 0 % (0-10); EOSINOPHILS % (AUTO) 0 % (0-10); HEMATOCRIT 23 % (35-52); HEMOGLOBIN 7.6 g/dL (11.5-16.0); LYMPHOCYTES # (AUTO) 1.2 10^3/uL (1.0-4.0); LYMPHOCYTES % (AUTO) 8 % (12-44); MEAN CORPUSCULAR HEMOGLOBIN 32 pg (25-34); MEAN CORPUSCULAR HGB CONC 33 g/dL (32-36); MEAN CORPUSCULAR VOLUME 96 fL (80-99); MEAN PLATELET VOLUME 9.8 fL (9.0-12.2); MONOCYTES # (AUTO) 0.7 10^3/uL (0.0-1.0); MONOCYTES % (AUTO) 5 % (0-12); NEUTROPHILS # (AUTO) 13.9 10^3/uL (1.8-7.8); NEUTROPHILS % (AUTO) 87 % (42-75); PLATELET COUNT 241 10^3/uL (130-400)
[2022-03-01] MEDS ORDERED: FLU QUADRIvalent (6 months+) 60 mcg/0.5 ml 2022-23 (Fluzone) IM ONE (07:00)
--- NOTE | 2022-03-01 08:45 | Postpartum Progress Note ---
Note Note Day # 1 Subjective: Patient is without complaints. Ambulating, voiding. Tolerating a regular diet without nausea or vomiting. Normal lochia. Pain is well controlled with oral pain medications. Objective: Physical Exam: General - Alert and oriented, no apparent distress Abdomen - Soft, appropriately tender to palpation, non-distended, fundus firm at umbilicus Extremities - no edema, negative Kevyn's bilaterally Incision- c/d/i Assessment: POD 1 PLTCS-emergency Acute blood loss anemia Plan: Routine care. Encourage breast feeding. Encourage ambulation. Ferrous sulfate supplementation. Plan for discharge tomorrow Vitals - Labs Vital Signs - I&O Vital Signs Date Time Temp Pulse Resp B/P (MAP) Pulse Ox O2 Delivery O2 Flow Rate FiO2 03/01/22 04:44 36.6 95 18 104/59 (74) 100 Room Air 03/01/22 00:40 37.1 99 18 110/74 (86) 100 Room Air 02/28/22 20:35 37.3 106 18 119/75 (90) 100 Room Air 02/28/22 16:44 36.7 103 18 129/60 (83) 100 Room Air 02/28/22 13:56 36.2 86 18 115/56 (75) 100 Room Air 02/28/22 13:10 Room Air 02/28/22 11:44 36.0 88 18 123/57 (79) 100 Room Air 02/28/22 11:33 Room Air 02/28/22 11:30 36.5 14 112/55 (74) 98 Room Air 02/28/22 11:20 15 117/74 (88) 99 Room Air 02/28/22 11:15 Room Air 02/28/22 11:10 16 111/74 (86) 99 OxyMask 2.00 02/28/22 11:00 17 99/58 (72) 100 OxyMask 2.00 02/28/22 11:00 OxyMask 2.00 02/28/22 10:50 16 106/88 (94) 99 OxyMask 4.00 02/28/22 10:45 OxyMask 6.00 02/28/22 10:40 14 102/72 (82) 99 OxyMask 6.00 02/28/22 10:30 36.1 18 92/55 (67) 98 OxyMask 8.00 02/28/22 10:30 OxyMask 8.00 02/28/22 09:28 71 18 124/60 (81) 100 Non Rebreather 15.00 02/28/22 09:22 73 18 93/51 (65) 100 Non Rebreather 15.00 02/28/22 09:16 69 18 105/62 (76) 100 Room Air 02/28/22 09:10 70 18 99/55 (70) 100 Room Air 02/28/22 09:05 70 18 112/68 (83) Room Air 02/28/22 08:58 81 18 115/56 (75) 100 Room Air 02/28/22 08:55 78 18 110/69 (83) Room Air 02/28/22 08:52 72 18 110/59 (76) 100 Room Air 02/28/22 08:49 36.1 79 18 112/63 (79) Room Air 02/28/22 08:46 75 18 105/57 (73) 100 Room Air I & O 03/01/22 07:00 Intake Total 1500 ml Output Total 125 ml Balance 1375 ml Labs Laboratory Tests 03/01/22 06:00: White Blood Count 16.0H, Red Blood Count 2.41L, Hemoglobin 7.6#L, Hematocrit 23L , Mean Corpuscular Volume 96, Mean Corpuscular Hemoglobin 32, Mean Corpuscular Hemoglobin Concent 33, Red Cell Distribution Width 13.3, Platelet Count 241, Mean Platelet Volume 9.8, Immature Granulocyte % (Auto) 1, Neutrophils (%) (Auto) 87H, Lymphocytes (%) (Auto) 8L, Monocytes (%) (Auto) 5, Eosinophils (%) (Auto) 0, Basophils (%) (Auto) 0, Neutrophils # (Auto) 13.9H, Lymphocytes # (Auto) 1.2, Monocytes # (Auto) 0.7, Eosinophils # (Auto) 0.0, Basophils # (Auto) 0.0, Immature Granulocyte # (Auto) 0.1 RUTH ANN HOFFMAN DO Mar 01, 2022 08:45
--- NOTE | 2022-03-01 08:47 | Discharge Inst-Women's Service ---
Discharge Inst-Women's Serv Depart Medication/Instructions New, Converted or Re-Newed RX: Transmitted to Pharmacy Final Diagnosis POD 2 PLTCS Acute blood loss anemia Problems Reviewed?: Yes Consults/Follow Up Additional Follow Up: Yes Orders/Referrals Dr. Nolan in 7-[address] Prabhakar in 6 weeks Activity Activity: Activity as Tolerated Driving Instructions: No Driving for 1 Week NO SMOKING: NO SMOKING Nothing Inside Vagina: No Douching, No [place], No Tampons Diet Discharge Diet: No Restrictions Symptoms to Report to : Bleeding Excessive, Pain Increased, Fever Over 101 Degrees F, Vaginal Bleeding Increase, Questions/Concerns For Any Problems or Questions: Contact Your Physician Skin/Wound Care Infection Signs and Symptoms: Increased Redness, Foul Odor of Wound, Increased Drainage, Skin Itchy or Has a Rash, Increased Swelling, Temperature Above 101 F Operative Area Clean and Dry: Keep Incision Clean/Dry Stitches/[place]/Dermabond: Dermabond, Care of Stitches Bathing Instructions: RUTH ANN Treviño DO Mar 01, 2022 08:47
[2022-03-01] MEDS ORDERED: ESCI10TA PO ×2 (08:48→11:21)
[2022-03-01] MEDS ORDERED: DOCU100C37 PO ×2 (08:48→11:21)
[2022-03-01] MEDS ORDERED: ACHD5005 PO ×2 (08:48→11:21)
[2022-03-01] MEDS ORDERED: FERR-84 PO (08:48)
[2022-03-01] MEDS ORDERED: IBUP-844 PO ×2 (08:48→11:21)
[2022-03-01 09:35] VITALS: BP 114/54
[2022-03-01] MEDS: DOCUSATE SODIUM 100 MG (COLACE) CAP PO SCH ×2 (10:45→19:55)
[2022-03-01] MEDS ORDERED: FERR325T24 PO (11:21)
[2022-03-01] MEDS: FERROUS SULF 325 MG (IRON) TAB PO SCH ×2 (13:08→17:30)
[2022-03-01 13:15] VITALS: BP 116/64
--- NOTE | 2022-03-01 13:41 | Anesthesia-General Post-Op ---
General Patient Condition Mental Status/LOC: Same as Preop Cardiovascular: Satisfactory Nausea/Vomiting: Absent Respiratory: Satisfactory Pain: Controlled Complications: Absent Post Op Complications Complications None Follow Up Care/Instructions Patient Instructions None needed. Anesthesia/Patient Condition Patient Condition Patient is doing well, no complaints, stable vital signs, no apparent adverse anesthesia problems. She had a labor epidural just prior to her emergent C/S. She is ambulating well without headaches or nausea. No complications reported per nursing. GARCIA MANNING DO Mar 01, 2022 13:41
[2022-03-01 19:55] VITALS: BP 111/54
[2022-03-01] MEDS: IBUPROFEN 600 MG (MOTRIN) TAB PO SCH (19:55)
[2022-03-02] MEDS: IBUPROFEN 600 MG (MOTRIN) TAB PO SCH ×2 (02:42→09:12)
[2022-03-02 02:50] VITALS: BP 104/51
[2022-03-02] MEDS: METOCLOPRAMIDE 10 MG (REGLAN) TAB PO SCH ×2 (06:10→12:05)
[2022-03-02] MEDS: HYDROcodone/APAP 5 MG/325 MG (LORTAB) TAB PO PRN ×2 (06:10→12:06)
--- NOTE | 2022-03-02 08:24 | Postpartum Progress Note ---
Note Note Day # 2 Subjective: Patient is without complaints. Ambulating, voiding. Tolerating a regular diet without nausea or vomiting. Normal lochia. Pain is well controlled with oral pain medications. Objective: Physical Exam: General - Alert and oriented, no apparent distress Abdomen - Soft, appropriately tender to palpation, non-distended, fundus firm at umbilicus Extremities - no edema, negative Kevyn's bilaterally Incision- c/d/i Assessment: POD 2 PLTCS Acute blood loss anemia Plan: Routine care. Encourage breast feeding. Encourage ambulation. Ferrous sulfate supplementation. Plan for discharge today Vitals - Labs Vital Signs - I&O Vital Signs Date Time Temp Pulse Resp B/P (MAP) Pulse Ox O2 Delivery O2 Flow Rate FiO2 03/02/22 02:50 36.8 92 18 104/51 (68) 98 Room Air 03/01/22 19:55 37.1 97 18 111/54 (73) 98 Room Air 03/01/22 13:15 36.6 98 18 116/64 (81) 98 Room Air 03/01/22 09:35 36.8 90 18 114/54 (74) 99 Room Air RUTH ANN HOFFMAN DO Mar 02, 2022 08:24
[2022-03-02 09:06] VITALS: BP 116/71
[2022-03-02] MEDS: DOCUSATE SODIUM 100 MG (COLACE) CAP PO SCH (09:11)
[2022-03-02] MEDS: FERROUS SULF 325 MG (IRON) TAB PO SCH (09:12)
== END 2022-03-02 13:00 | disposition home or self-care (01) | DRG 787 ==
LOC: WSo 07:37 → LDRP 07:37 → WSo 07:51 → LDRP 07:52
PROVIDERS: ADMIT Obstetrics & Gynecology; ATTEND Obstetrics & Gynecology
PROC: 10D00Z1 Extraction of Products of Conception, Low, Open Approach (ICD-10-PCS; principal; 2022-02-28 09:32)
DX: O32.8XX0 Maternal care for other malpresentation of fetus, not applicable or unspecified (principal); D62 Acute posthemorrhagic anemia; Z37.0 Single live birth; O76 Abnormality in fetal heart rate and rhythm complicating labor and delivery; O62.1 Secondary uterine inertia; O90.81 Anemia of the puerperium; Z3A.37 37 weeks gestation of pregnancy; Z23 Encounter for immunization
CPT/HCPCS: 36415; 74018; 85007; 85025; 85027; 86780; 86850; 86900; 86901; 90686; 94664; 99212